=== PATIENT | male | born 1955 | race Caucasian/White ===

== ENCOUNTER 2022-04-25 04:29 | Emergency (ER) | payer MEDICARE, BC, SELFPAY ==
[2022-04-25 04:40] VITALS: BP 184/98; PULSE 93; RESP 16; TEMP 36.6; O2SAT 96; BMI 44.0
--- NOTE | 2022-04-25 04:59 | CRLHL7_ITS ---
For Patients: As a result of the Century Cures Act, medical imaging exams and procedure reports are released immediately into your electronic medical record. You may view this report before your referring provider. If you have questions, please contact your health care provider. INDICATION: Chest pain. TECHNIQUE: Chest 1 views. COMPARISON: None. FINDINGS: Cardiovascular and mediastinum: Cardiomegaly without evidence of pulmonary edema. Lungs and pleural spaces: Lungs are clear. No sign of infiltrate. No sign of pleural effusion. No pneumothorax. Bones and soft tissues: No significant findings. IMPRESSION: Possible 1 cm nodule within the right pulmonary apex. Recommend dedicated CT chest to further evaluate. Diffuse interstitial lung markings which may relate to COPD. Cardiomegaly. Dictated by Meng Alexander MD @ 04/25/2022 7:26:13 AM (Electronically Signed)
[2022-04-25 05:02] VITALS: BP 171/97; PULSE 60; RESP 16; TEMP 36.6; O2SAT 97
[2022-04-25] MEDS: ASPIRIN 81 MG TAB.CHEW 324 MG PO (05:05)
[2022-04-25] MEDS: NITROGLYCERIN 0.4 MG TAB.SUBL SUBLINGUAL (05:07)
--- NOTE | 2022-04-25 05:07 | ED_ITS ---
HPI - Chest Pain General Chief Complaint: Chest Pain Stated Complaint: High blood pressure,chest pain Time Seen by Provider: 04/25/22 04:31 Source: patient and family Mode of arrival: ambulatory Limitations: no limitations History of Present Illness HPI narrative: 67-year-old male presents the emergency department with a 10 hour history of substernal chest pain going radiating into the neck area, described as a t ightness. He has been noticing gradually worsening shortness of breath, especially on exertion over the last month or so as well. Denies previous chest pain. No prior history of coronary artery disease. Patient reports that he had a stress test probably about 2 years ago at the [facility], unfortunately do not have these records. He does not recall what type of stress test was performed. He has a notable history of hypertension. His hypertension was uncontrolled at his last primary care visit last week. Because of this, his atenolol was stopped and he was started on carvedilol. Patient picked up the medication and began taking 2 days ago. No cough. No fevers denies any abdominal symptoms, epigastric pain or vomiting. No trauma nor injury. He did not try any interventions at home like nitroglycerin which he does not have access to or other medications to help with his symptoms. His comes with him and does confirm his story today. She has also been checking his blood pressure in shows me values ranging from the 150s to 180s every few hours last night. No prior angiogram, stents, bypass surgery. No prior history of pulmonary embolism. He does not take anticoagulants. Past medical history notable for gout, hypertension, asthma. Medications reviewed from the [facility]. Notable for recent cessation of atenolol and begin of carvedilol. Surgical history notable for knee replacements, esophageal surgery more than 30 years ago, uncomplicated. Family history is not notable for premature coronary artery disease but does have heart disease. Socially is a nonsmoker, denies alcohol use, pertinent travel. ROS negative times 12 systems with the exception of the shortness of breath and chest pain described above. Related Data Home Medications Medication Instructions Recorded Confirmed albuterol sulfate 90 mcg/actuation inhalation 04/25/22 aerosol inhaler allopurinol 300 mg tablet mg 04/25/22 budesonide-formoterol HFA 160 inhalation 04/25/22 mcg-4.5 mcg/actuation aerosol inhaler (Symbicort) carvedilol 12.5 mg tablet mg 04/25/22 celecoxib 200 mg capsule mg 04/25/22 losartan 100 mg tablet mg 04/25/22 naproxen 500 mg tablet mg 04/25/22 omeprazole 20 mg capsule,delayed mg 04/25/22 release Allergies Allergy/AdvReac Type Severity Reaction Status Date / Time amlodipine AdvReac Verified 04/25/22 04:44 atorvastatin AdvReac Verified 04/25/22 04:44 oxycodone AdvReac Verified 04/25/22 04:44 tadalafil [From Cialis] AdvReac Verified 04/25/22 04:44 [facility] Medical History (Updated 04/25/22 @ 05:51 by Felecia Freed MD) Asthma Depression GERD (gastroesophageal reflux disease) Hyperlipidemia Hypertension Normocytic anemia Sleep apnea Surgical History (Updated 04/25/22 @ 05:[address] RN) History of thoracotomy History of tonsillectomy and adenoidectomy History of total knee arthroplasty History of total right knee replacement History of transurethral resection of prostate Social History Smoking Status: Former smoker How often do you have a drink containing alcohol: never AUDIT-C Alcohol total score: 0 Non-prescribed substance use: denies use Exam Const Vital Signs, click to edit/add: Vital Signs - 24 hr 04/25/22 04:40 04/25/22 05:10 04/25/22 05:02 Temperature 97.8 F 97.8 F Pulse Rate [Left Pulse Oximeter] 93 60 Respiratory Rate 16 16 Blood Pressure [Left Upper Arm] 184/98 H 171/97 H Pulse Oximetry 96 98 97 Oxygen Delivery Method Room Air Room Air 04/25/22 05:10 04/25/22 05:30 04/25/22 06:00 Temperature Pulse Rate [Left Pulse Oximeter] 61 61 59 L Respiratory Rate 16 16 16 Blood Pressure [Left Upper Arm] 165/94 H 166/88 H 162/85 H Pulse Oximetry 97 97 98 Oxygen Delivery Method Room Air Room Air Room Air Documenting provider has reviewed patient's vital signs: yes Common normals: no apparent distress General appearance: cooperative Other: Good historian, calm HENWA Common normals: normocephalic Head and scalp: normocephalic Face and sinus: normal facial exam Mouth: oral and palatal mucosa normal Throat: posterior oropharynx normal Eye Common normals: conjunctivae normal and no scleral icterus Conjunctiva: conjunctiva(e) normal Other: Normal visual tracking Neck & C-Spine Common normals: full ROM, no lymphadenopathy, no JVD and thyroid normal Thyroid: thyroid normal Chest Common normals: inspection of chest normal Resp Common normals: normal respiratory effort, no retractions, no use of accessory muscles and clear to auscultation bilaterally Effort & inspection: able to speak in complete sentences Auscultation: clear to auscultation bilaterally Cardio Common normals: no JVD, regular rate, regular rhythm, S1 normal heart sound, S2 normal heart sound, no murmurs and peripheral pulses 2+ throughout Rate: regular rate Rhythm: regular rhythm Heart sounds: S1 normal and S2 normal Peripheral pulses: pulses 2+ throughout GI Common normals: Normal to inspection, nondistended, normoactive bowel sounds present, soft to palpation, non-tender, no hepatosplenomegaly and no masses Palpation: soft and no hepatosplenomegaly Other: Slight umbilical hernia, not symptomatic Extremity Common normals: normal to inspection, normal capillary refill and no pedal edema Neuro Speech: speech normal Gait (neuro): normal gait Motor exam: strength 5/5 throughout, no tremor noted and no movement abnormalities noted Psych Common normals: mental status grossly normal, thought process normal and cooperative Activity/motor behavior: appropriate eye contact Thought process: normal thought process Insight: insight good Judgement: judgment good Skin Common normals: no rashes or lesions noted General skin exam: no rashes or lesions noted Course Course Hospital Course: Multiple risk factors for coronary artery disease including hypertension, age, male gender, family history. Initial EKG is reassuring. Recommend troponins, chest x-ray, trial of nitroglycerin, will also begin aspirin. Awaiting lab results for further management. Patient will be placed on a cardiac surgeon. Vital Signs Vital signs: Initial Vital Signs Temperature 97.8 F 04/25/22 04:40 Temperature Source Temporal Artery Scan 04/25/22 04:40 Pulse Rate 93 04/25/22 04:40 Respiratory Rate 16 04/25/22 04:40 Blood Pressure 184/98 H 04/25/22 04:40 Blood Pressure Mean 126 04/25/22 04:40 Blood Pressure Position Supine 04/25/22 04:40 Pulse Oximetry 96 04/25/22 04:40 Oxygen Delivery Method 04/25/22 04:40 Vital Signs Temperature 97.8 F 04/25/22 04:40 Pulse Rate 93 04/25/22 04:40 Respiratory Rate 16 04/25/22 04:40 Blood Pressure 184/98 H 04/25/22 04:40 Pulse Oximetry 96 04/25/22 04:40 Oxygen Delivery Method 04/25/22 04:40 Temperature 97.8 F 04/25/22 05:02 Pulse Rate 59 L 04/25/22 06:00 Respiratory Rate 16 04/25/22 06:00 Blood Pressure 162/85 H 04/25/22 06:00 Pulse Oximetry 98 04/25/22 06:00 Oxygen Delivery Method 04/25/22 06:00 MDM - Chest Pain MDM Narrative Medical decision making narrative: Patient was given nitroglycerin x1, reported that his chest pain went from a 3 to a 1 for about 30 seconds and then return to a 3, making me think that this was not clinically significant at all. He does notable history of esophagitis and is overweight, I also try GI cocktail while we await our other results. Update 550: Patient did not have any improvement on GI cocktail. 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 I let him know that that is certainly a possibility and offer some Tylenol to see if this improves his pain which he declines. Repeat labs at 6:30 a.m.. Discussed that I would like for him to increase his carvedilol to 25 mg b.i.d. and he will need primary care follow-up and decision if further workup and cardiac stress test would be beneficial. He would like this to be coordinated through his primary care provider and [facility] as his previous records are there. Repeat troponins are also reassuring. Recommended discharge instructions as further described as below with increased Coreg, light duty for 2 days and outpatient follow-up for echo versus stress testing if medically appropriate and he has not had this recently, as he was unsure of date. Differential Diagnosis Differential diagnosis: Likely pneumothorax, atypical chest pain, st elevation myocardial infarction, costochondritis, chest pain and biliary colic Medical Records Data Attestation: I reviewed the patient's medical records. Lab Data Attestation: I reviewed the patient's lab results. Labs: Lab Results 04/25/22 04/25/22 04/25/22 Range/Units 05:00 05:00 05:00 WBC 6.83 (4.50-11.00) K/uL RBC 3.74 L (4.30-5.90) m/uL Hgb 11.4 L (13.5-17.5) gm/dL Hct 35.1 L (37.0-53.0) % MCV 94 (80-100) fL MCH 31 (26-34) pg MCHC 33 (32-36) gm/dL RDW Coeff of Fish 14.0 (11.5-15.5) % Plt Count 201 (140-440) K/uL Neut % (Auto) 62.9 (42.0-72.0) % Lymph % (Auto) 20.8 (20-44) % [place] % (Auto) 8.9 (0.0-11.0) % Eos % (Auto) 6.6 (0.0-7.0) % Baso % (Auto) 0.7 (0.0-3.0) % Neut # (Auto) 4.29 (1.7-7.0) K/uL Lymph # (Auto) 1.42 (0.90-2.90) K/uL [place] # (Auto) 0.60 (0.00-0.90) K/UL Eos # (Auto) 0.45 (0.00-0.50) K/uL Baso # (Auto) 0.05 (0.00-0.30) K/uL Abs Immat Gran (auto) 0.01 (0.00-0.30) K/uL Imm/Tot Granulo (auto) 0.1 % Sodium 141 (135-149) mmol/L Potassium 3.9 (3.6-5.1) mmol/L Chloride 109 (96-114) mmol/L Carbon Dioxide 24 (20-32) mmol/L BUN 22 (7-30) mg/dL Creatinine 0.9 (0.5-1.5) mg/dL Estimated Creat Clear 75.03 Estimated GFR 94 ml/min Glucose 111 (60-115) mg/dL Calcium 9.2 (8.4-10.6) mg/dL Total Bilirubin 0.3 (0.1-1.5) mg/dL AST 23 (12-35) U/L ALT 26 (4-50) U/L Alkaline Phosphatase 85 (40-150) U/L Troponin I < 0.01 L (0.01-0.04) ng/mL C-Reactive Protein 0.8 (0.5-1.0) mg/dL NT-Pro-B Natriuret Pep 338 H (0-125) PG/mL Total Protein 6.3 (6.0-8.3) g/dL Albumin 3.9 (3.3-5.0) g/dL POC Troponin I 0.00 L (0.01-0.04) ng/ml 04/25/22 Range/Units 06:28 WBC (4.50-11.00) K/uL RBC (4.30-5.90) m/uL Hgb (13.5-17.5) gm/dL Hct (37.0-53.0) % MCV (80-100) fL MCH (26-34) pg MCHC (32-36) gm/dL RDW Coeff of Fish (11.5-15.5) % Plt Count (140-440) K/uL Neut % (Auto) (42.0-72.0) % Lymph % (Auto) (20-44) % [place] % (Auto) (0.0-11.0) % Eos % (Auto) (0.0-7.0) % Baso % (Auto) (0.0-3.0) % Neut # (Auto) (1.7-7.0) K/uL Lymph # (Auto) (0.90-2.90) K/uL [place] # (Auto) (0.00-0.90) K/UL Eos # (Auto) (0.00-0.50) K/uL Baso # (Auto) (0.00-0.30) K/uL Abs Immat Gran (auto) (0.00-0.30) K/uL Imm/Tot Granulo (auto) % Sodium (135-149) mmol/L Potassium (3.6-5.1) mmol/L Chloride (96-114) mmol/L Carbon Dioxide (20-32) mmol/L BUN (7-30) mg/dL Creatinine (0.5-1.5) mg/dL Estimated Creat Clear Estimated GFR ml/min Glucose (60-115) mg/dL Calcium (8.4-10.6) mg/dL Total Bilirubin (0.1-1.5) mg/dL AST (12-35) U/L ALT (4-50) U/L Alkaline Phosphatase (40-150) U/L Troponin I (0.01-0.04) ng/mL C-Reactive Protein (0.5-1.0) mg/dL NT-Pro-B Natriuret Pep (0-125) PG/mL Total Protein (6.0-8.3) g/dL Albumin (3.3-5.0) g/dL POC Troponin I 0.00 L (0.01-0.04) ng/ml Imaging Data Chest x-ray: My impression: No focal infiltrates or signs of CHF. Mild cardiomegaly noted. ECG Data Attestation: I personally reviewed and interpreted this ECG as follows: Interpretation: Normal axis. Rate is 61 in shows an incomplete right bundle branch block. I do not have a comparison EKG unfortunately. There are no other obvious ST or T- wave abnormalities. Discharge Plan Discharge Clinical Impression: Chest pain Patient Disposition: Home w/ Parent or Adult Condition: Stable Instructions: Chest Pain (DC) Additional Instructions: Do not see any signs of a heart attack. This is good news. Your chest pain was not improved with nitroglycerin which is also reassuring. I do think that the new dose of carvedilol will not be strong enough to control your blood pressure adequately. I would recommend that we increase her dose to 25 mg 2 times per day. Initially, I want you to start taking 2 tablets of your current supply 2 times per day. I would like for you to follow-up with Dr. Boss in 2-8 days to recheck your blood pressure. You have let me know that you have had a stress test within the last couple of years. If it has been longer than that, I would encourage Dr. Boss to order another 1 or consider an echo if you are still having symptoms. I am not opposed to using Tylenol for your pain as this certainly could have been exacerbated by your recent yd work and prior history of sternal fracture. If your chest pain worsen significantly, especially if it is accompanied by symptoms with exertion and not relieved by rest, come back to the emergency department. If your blood pressure is better controlled on the increased dose of Coreg, Dr. Boss will need to write you a new prescription for the 25 mg twice daily dose. Activity Level: No Restrictions Discharge Diet: Regular Prescriptions: No Action celecoxib 200 mg capsule Label Comments: TAKE ONE CAPSULE BY MOUTH EVERY DAY, TAKE WITH A MEAL carvedilol 12.5 mg tablet Label Comments: TAKE ONE TABLET BY MOUTH TWICE A DAY WITH MEALS omeprazole 20 mg capsule,delayed release(DR/EC) Label Comments: TAKE ONE CAPSULE BY MOUTH EVERY DAY BEFORE A MEAL allopurinol 300 mg tablet Label Comments: TAKE ONE TABLET BY MOUTH EVERY DAY albuterol sulfate 90 mcg/actuation HFA aerosol inhaler INHALATION Label Comments: INHALE 2 PUFFS EVERY 4 HOURS NEEDED FOR FOR SHORTNESS OF BREATH losartan 100 mg tablet Label Comments: TAKE ONE TABLET BY MOUTH EVERY DAY naproxen 500 mg tablet Label Comments: TAKE ONE TABLET BY MOUTH TWICE A DAY FOR 3-5 DAYS NEEDED FOR GOUT budesonide-formoterol [Symbicort] 160-4.5 mcg/actuation HFA aerosol inhaler INHALATION Label Comments: INHALE TWO PUFFS BY MOUTH TWICE A DAY Follow Up/Referrals: Donte Boss MD [Primary Care Provider] - 7 Days Stand Alone Forms: [employer] Info Instructions
[2022-04-25 05:10] VITALS: BP 165/94; PULSE 61; RESP 16; O2SAT 97; O2SAT 98
[2022-04-25 05:10] LABS: Basophils Absolute Auto 0.05 K/uL (0.00-0.30); Basophils Percent Auto 0.7 % (0.0-3.0); Eosinophils Absolute Auto 0.45 K/uL (0.00-0.50); Eosinophils Percent Auto 6.6 % (0.0-7.0); Hematocrit 35.1 % (37.0-53.0); Hemoglobin* 11.4 gm/dL (13.5-17.5); Immature Granulocytes Abs Auto 0.01 K/uL (0.00-0.30); Immature Granulocytes Pct Auto 0.1 %; Lymphocytes Absolute Auto 1.42 K/uL (0.90-2.90); Lymphocytes Percent Auto 20.8 % (20-44); Mean Corpuscular HGB Conc 33 gm/dL (32-36); Mean Corpuscular Hemoglobin 31 pg (26-34); Mean Corpuscular Volume 94 fL (80-100); Monocytes Percent Auto 8.9 % (0.0-11.0); Neutrophils Absolute Auto 4.29 K/uL (1.7-7.0); Neutrophils Percent Auto 62.9 % (42.0-72.0); Platelet Count* 201 K/uL (140-440); Red Blood Count 3.74 m/uL (4.30-5.90); White Blood Count* 6.83 K/uL (4.50-11.00)
[2022-04-25 05:16] LABS: Slide Review Reflex No
[2022-04-25 05:23] LABS: Albumin* 3.9 g/dL (3.3-5.0); Chloride* 109 mmol/L (96-114); Potassium* 3.9 mmol/L (3.6-5.1); Sodium* 141 mmol/L (135-149)
[2022-04-25 05:25] LABS: Creatinine* 0.9 mg/dL (0.5-1.5); Est. Creatinine Clearance* 75.03; Estimated Glomerular Filt Rate 94 ml/min
[2022-04-25 05:26] LABS: Alanine Aminotransferase* 26 U/L (4-50); Alkaline Phosphatase* 85 U/L (40-150); Aspartate Amino Transferase* 23 U/L (12-35); Bilirubin Total* 0.3 mg/dL (0.1-1.5); Blood Urea Nitrogen* 22 mg/dL (7-30); Carbon Dioxide* 24 mmol/L (20-32); Glucose* 111 mg/dL (60-115); Total Protein* 6.3 g/dL (6.0-8.3)
[2022-04-25 05:27] LABS: Calcium* 9.2 mg/dL (8.4-10.6)
[2022-04-25] MEDS: FAMOTIDINE 20 MG TABLET PO (05:27)
[2022-04-25] MEDS: GI COCKTAIL (VISC LIDO/ANTACID) 30 ML PO (05:27)
[2022-04-25 05:29] LABS: C Reactive Protein* 0.8 mg/dL (0.5-1.0)
[2022-04-25 05:30] VITALS: BP 166/88; PULSE 61; RESP 16; O2SAT 97
[2022-04-25 05:35] LABS: NT Pro B Type NatriureticPept* 338 PG/mL (0-125)
[2022-04-25 05:39] LABS: Troponin I* < 0.01 ng/mL (0.01-0.04)
[2022-04-25 06:00] VITALS: BP 162/85; PULSE 59; RESP 16; O2SAT 98
[2022-04-25 06:52] VITALS: BP 158/86; PULSE 63; RESP 16; TEMP 36.6; O2SAT 98
== END 2022-04-25 06:55 | disposition home or self-care (01) ==
PROVIDERS: Emergency Provider Family Medicine; PCP Family Medicine
DX: R07.9 Chest pain, unspecified (principal)
CPT/HCPCS: 36415; 71045; 80053; 83880; 84484; 85025; 86140; 93005; 94761; 99283; 99285; A9270